=== PATIENT | female | born 1985 | race Caucasian/White ===

== ENCOUNTER 2021-03-16 16:19 | Emergency (ER) | payer OTHER ==
[2021-03-16 17:51] LABS: HEMOGLOBIN 14.2 gm/dl (12.3-15.3); RED BLOOD COUNT 4.3 M/UL (4.00-5.10); WHITE BLOOD COUNT 6.8 K/UL (4.5-11.0)
[2021-03-16 18:11] LABS: BUN/CREATININE RATIO 19 (0-10)
== END 2021-03-16 22:50 | disposition left against medical advice (07) ==
LOC: ER1 16:19
PROVIDERS: Physician Assistant Medical
DX: U07.1 COVID-19 (principal)
CPT/HCPCS: 36415; 71045; 80053; 82550; 82553; 83605; 83874; 84484; 85025; 85379; 87040; 93005; 99283; U0002